=== PATIENT | male | born 1980 | race American Indian/Alaskan Native ===

== ENCOUNTER 2021-12-05 10:53 | Outpatient (CLI) | payer BC ==
[2021-12-05 11:22] LABS: Hematocrit 42.2 % (35.5-45.6); Mean Corpuscular HGB Conc 33 % (32-34); Mean Corpuscular Volume 98 fl (84-94); Platelet Count 245 K/mm3 (140-440); Red Cell Distribution Width 13.6 % (13.2-15.2)
[2021-12-05 11:49] LABS: Alanine Aminotransferase 64 units/L (7-56); Albumin 4.6 g/dL (3.9-5); BUN/Creatinine Ratio 16; Blood Urea Nitrogen 14 mg/dL (9-20); Hemolysis Index 6
[2021-12-05 13:55] LABS: Band Neutrophils # (Manual) 0.1 K/mm3; Basophils % (Manual) 0 % (0.0-1.8); Eosinophils % (Manual) 0 % (0.0-4.3); Platelet Estimate Consistent w Auto; RBC Morphology Normal; Total Cells Counted 100
== END 2021-12-05 10:54 | disposition home or self-care (01) ==
LOC: LAB 10:53
PROVIDERS: ATTEND Surgery
DX: K40.90 Unilateral inguinal hernia, without obstruction or gangrene, not specified as recurrent (principal)
CPT/HCPCS: 36415; 80053; 85007; 85025

== ENCOUNTER 2021-12-10 06:22 | Day surgery (SDC) | payer BC ==
[2021-12-10] MEDS ORDERED: ceFAZolin/STERILE WATER 2 GM/20 ML SYRINGE IV SCH (07:00)
--- NOTE | 2021-12-10 07:12 | Anesthesia Consultation ---
Anesthesia Consult and Med Hx Date of service: 12/10/21 - Airway Anesthetic Teeth Evaluation: Poor ROM Head & Neck: Adequate Mental/Hyoid Distance: Adequate Mallampati Class: Class II Intubation Access Assessment: Probably Good - Pulmonary Exam CTA: Yes - Cardiac Exam Cardiac Exam: RRR - Pre-Operative Health Status ASA Pre-Surgery Classification: ASA2 Proposed Anesthetic Plan: General - Pre-Anesthesia Comment Pre-Anesthesia Comments: PS 1999 CIRCUMCISION AND 2008- APPY, - Pulmonary Hx Smoking: Yes (STOPPED 2.5 YRS) Hx Asthma: No Hx Respiratory Symptoms: No SOB: No COPD: No Home Oxygen Therapy: No Hx Pneumonia: No Hx Sleep Apnea: No ([facility]NA PRE SCREEN LOW RISK) - Cardiovascular System Hx Hypertension: No Hx Coronary Artery Disease: No Hx Heart Attack/AMI: No Hx Angina: No Hx Percutaneous Transluminal Coronary Angioplasty (PTCA): No Hx Cardia Arrhythmia: No Hx Internal Defibrillator: No - Central Nervous System Hx Psychiatric Problems: No - Gastrointestinal Hx Gastroesophageal Reflux Disease: No - Endocrine Hx Renal Disease: No Hx Liver Disease: No Hx Insulin Dependent Diabetes: No Hx Non-Insulin Dependent Diabetes: No Hx Thyroid Disease: No - Hematic Hx Anemia: No - Other Systems Hx Alcohol Use: Yes (SOCIAL ) Hx Cancer: No Hx Obesity: Yes
--- NOTE | 2021-12-10 07:12 | Anesthesia Day of Surgery ---
Anesthesia Day of Surgery - Day of Surgery Patient Examined: Yes Patient H&P Reviewed: Yes Patient is NPO: Yes
[2021-12-10] MEDS ORDERED: BUPIVACAINE/PF (0.5%) 5 MG/1 ML 30 ML VIAL INFILTRATI ONE (07:43)
[2021-12-10] MEDS ORDERED: LIDOCAINE (1%) 10 MG/1 ML VIAL 20 ML MDV ONE (07:43)
[2021-12-10] MEDS ORDERED: LACTATED RINGERS 1,000 ML IV SCH (08:00)
[2021-12-10] MEDS ORDERED: LIDOCAINE MPF (2%) 20 MG/1 ML VIAL 5 ML ONE (08:02)
[2021-12-10] MEDS ORDERED: ONDANSETRON 4 MG/2 ML INJ ONE ×2 (08:02→12:39)
[2021-12-10] MEDS ORDERED: HYDROmorphone 1 MG/1 ML INJ ONE (08:02)
[2021-12-10] MEDS ORDERED: ROCURONIUM 50 MG/5 ML INJ IV ONE ×2 (08:02→10:14)
[2021-12-10] MEDS ORDERED: propofoL 200 MG/20 ML VIAL IV ONE (08:03)
[2021-12-10] MEDS ORDERED: LACTATED RINGERS 1,000 ML ONE ×2 (08:06→10:46)
[2021-12-10] MEDS ORDERED: SODIUM CHLORIDE 0.9% IRR 1,000 ML BOTTLE IR ONE (09:35)
[2021-12-10] MEDS ORDERED: KETOROLAC 30 MG/1 ML INJ ONE (10:14)
[2021-12-10] MEDS ORDERED: NEOSTIGMINE 10MG/10 ML INJ MDV ONE (10:14)
[2021-12-10] MEDS ORDERED: GLYCOPYRROLATE 0.4 MG/2 ML INJ ONE (10:14)
[2021-12-10] MEDS ORDERED: PHENYLEPHRINE/NS 1,000 MCG/10 ML SYRINGE (OR USE) IV ONE (10:14)
[2021-12-10] MEDS ORDERED: dexAMETHasone 20 MG/5 ML VIAL ONE (10:14)
[2021-12-10] MEDS ORDERED: HYDROmorphone 0.5 MG/0.5 ML INJ IV PRN (12:40)
[2021-12-10] MEDS ORDERED: ONDANSETRON 4 MG/2 ML INJ IV PRN (12:40)
--- NOTE | 2021-12-10 12:50 | Short Stay Summary ---
Short Stay Documentation Date of service: 12/10/21 - History Principal diagnosis: right inguinal hernia H&P: obtained from office - Allergies and Medications Current Medications: Allergies No Known Allergies Allergy (Verified 12/06/21 15:38) Home Medications Medication Instructions Recorded Confirmed Last Taken Type No Known Home Medications [No 12/06/21 12/06/21 Unknown History Reported Home Medications] Active Medications Cefazolin Sodium (Cefazolin/Sterile Water 2 Gm/20 Ml Syringe) 2 gm IV PREOP EUGENE - Brief post op/procedure progress note Date of procedure: 12/10/21 Pre-op diagnosis: Right inguinal hernia Post-op diagnosis: same (Incarcerated right inguinal hernia) Procedure: Robotic assisted lysis of adhesions, right inguinal hernia repair with mesh, right ilioinguinal nerve block Anesthesia: GETA, local Findings: Large indirect right-sided inguinal hernia with incarcerated omentum and dense adhesions from the colon and omentum to the hernia sac. Repaired with large right medium weight 3D max mesh. Surgeon: MARTINA HOOPER (Air Crew Officer: Barrie Patterson ) Estimated blood loss: minimal Pathology: none Condition: stable - Hospital course Hospital course: Patient observed in PACU and discharged home in stable condition when criteria met - Disposition Condition at discharge: Good Disposition: 01 HOME / SELF CARE / HOMELESS Short Stay Discharge Plan Activity: other (No heavy lifting for 6 weeks) Diet: regular Wound: open to air, per your surgeon's advice Additional Instructions: Please see printed discharge instructions Follow up with: PRIMARY CARE, [Primary Care Provider] - 7 Days MARTINA HOOPER DO [Staff Physician] - 14 Days Prescriptions: Gabapentin 300 mg PO BID 3 Days #6 cap Ibuprofen [Motrin 800 MG tab] 800 mg PO Q8HR PRN #30 tablet PRN Reason: Pain, Moderate (4-6) HYDROcodone/APAP 5-325 [[place] 5/325] 1 each PO Q6HR PRN #20 tablet PRN Reason: Pain , Severe (7-10)
[2021-12-10] MEDS ORDERED: HYDROcodone/ACETAMINOPHEN 5-325 MG TAB PO PRN (13:00)
[2021-12-10 13:54] VITALS: BP 138/88
--- NOTE | 2021-12-10 16:06 | Post Anesthesia Evaluation ---
- Post Anesthesia Evaluation Patient Participated: Yes Airway Patent: Yes Stable Respiratory Function: Yes Nausea/Vomiting: No Temp > 96.8F: Yes Pain Manageable: Yes Adequeate Hydration: Yes Anesthesia Complications: No
--- NOTE | 2021-12-11 10:37 | Operative Report ---
Operative Report Operative Report: Date of procedure: 12/10/21 Pre-op diagnosis: Right inguinal hernia Post-op diagnosis: same (Incarcerated right inguinal hernia) Procedure: Robotic assisted lysis of adhesions, right inguinal hernia repair with mesh, right ilioinguinal nerve block Anesthesia: GETA, local Findings: Large indirect right-sided inguinal hernia with incarcerated omentum and dense adhesions from the colon and omentum to the hernia sac. Repaired with large right medium weight 3D max mesh. Surgeon: MARTINA HOOPER (Ornamental Metal Erector: Barrie Patterson ) Estimated blood loss: minimal Pathology: none Condition: stable Hospital course: Patient observed in PACU and discharged home in stable condition when criteria met HPI and indication: Patient is a 41-year-old male who was referred to the surgery clinic for a bulge in the right groin. He was found to have a right inguinal hernia on physical exam. It was recommended that the hernia be repaired. I discussed all risk, benefits, alternatives to repair with the patient and questions were answered. I explained that if the hernia was found on the left side at the same time, this would be fixed as well. The patient was agreeable. Consent obtained for robotic assisted right inguinal hernia repair with mesh, possible left, possible open. Procedure in detail: Patient was identified in the preoperative area, take back to operating room placed on operative table in supine position. After anesthesia was induced both arms were tucked and all bony prominences padded appropriately. A Cancino catheter was sterilely placed by the circulating nurse. The abdomen and b/l groins were then prepped and draped in usual sterile fashion and a timeout performed. Local anesthetic was infiltrated to skin at the intended incision sites. A supraumbilical incision was made through which a Veress needle was inserted. Veress needle positioning was confirmed using saline drop test and the abdomen insufflated to 15 mmHg. Once the abdomen was insufflated, the Veress needle was removed and a 5 mm Optiview trocar was placed as incision. The abdomen is inspected there was no underlying injury to any of the abdominal structures. Patient was placed in Trendelenburg and the pelvis examined. There were adhesions from the sigmoid colon to the left lower abdominal wall. There was a right inguinal hernia containing incarcerated omentum and no obvious hernia on the right. There were also dense adhesions fro m the omentum and right colon to the hernia sac. At this point, an 8 mm right upper quadrant and left upper quadrant robotic trocars were then placed under direct visualization. The 5 mm supraumbilical trocar was removed and replaced with a 12 mm balloon trocar under direct visualization. A Ray-Levi was placed into the abdomen. The robot was then docked. A fenestrated bipolar was placed into arm #2 and a monopolar scissor in arm #1. The surgeon was then transferred to the console. I started by attempting to reduce the incarcerated omentum. Dense adhesions from the omentum to the hernia sac were divided using combination of blunt dissection and electrocautery. Adhesions from the colon were also taken down in a similar fashion with great care to avoid injury. There was a large amount of omentum incarcerated in the hernia, the majority of which was able to be reduced once adhesions were taken down. At this point, I created a right sided preperitoneal flap. The peritoneum was scored approximately 5 to 6 cm from the hernia defect. The peritoneum was then incised from the midline to the ASIS. The preperitoneal flap was then developed in an avascular plane. I defined the lateral margin using blunt dissection and electrocautery. Great care was taken to avoid injury to any nerves. I then dissected the medial margin. There were dense adhesions in this area which were taken down meticulously using blunt dissection and electrocautery. The dissection was continued until the pubic tubercle was identified and cleared of overlying fatty tissue. There was a large indirect inguinoscrotal hernia. The hernia sac was chronically thickened and scarred to the surrounding structures. The hernia sac was gently reduced using blunt dissection and transecting cremasteric fibers with electrocautery. During the dissection, the cord structures were identified and protected. The cord structures and vas deferens were visualized throughout the entire dissection. There were areas of the hernia sac were which were extremely thin and during reduction, tears were created. The majority of the hernia sac was able to be reduced. A very small portion of the hernia sac was unable to be reduced secondary to chronic scarring and was transected. The peritoneal flap was checked for hemostasis which was very carefully ensured. Any additional cremasteric fibers that were were tenting up the peritoneum were divided in order to facilitate mesh placement. The entire dissection took greater than 2 hours. The hernia was repaired using a right large medium weight 3D max mesh. The mesh along with suture material was placed into the abdomen by the virtual assistant. The mesh was positioned into the preperitoneal flap in the usual fashion. The medial portion of the mesh was sutured to Kobi's ligament using an interrupted 2-0 Vicryl stitch. The lateral aspect of the mesh was sutured to the anterior lateral abdominal wall using a 2-0 Vicryl interrupted stitch. The mesh was seen to lay flat in the pocket with excellent coverage. An 18 Thai Angiocath was inserted through the left lower abdominal wall into the preperitoneal flap by the virtual assistant under direct visualization. This was used to later decompressed the preperitoneal space of pneumoperitoneum. The peritoneum was then reapproximated using 3-0 running V-Loc stitch. The defect in the peritoneum were approximated using another running 3 OV lock stitch. The entirety of the mesh was covered with peritoneum. The robot was then undocked and the surgeon scrubbed back in. The remainder of the case was performed laparoscopically. All sharp materials along with a Ray-Levi were removed from the abdomen under direct visualization. The 12 mm port was removed and the fascia closed using a interrupted 0 Vicryl stitch. The abdomen was then slowly desufflated and the mesh was seen to lay flat in the preperitoneal space. The remaining trocars were removed. Preperitoneal air and the flap was evacuated via the Angiocath and the Angiocath removed. Skin incisions were once again infiltrated with local anesthetic. Right ilioinguinal nerve block was also performed with 5 cc of local anesthetic. The skin incisions were approximated with 4-0 Monocryl subcuticular stitches and skin glue. At the end of the case all sponge, instrument, sharp counts were correct x2. Patient was awoken from anesthesia and Cancino catheter removed. A scrotal support was applied. Both testicles were palpated in the scrotum in anatomic position. The patient was taken to PACU in stable condition.
== END 2021-12-10 14:20 | disposition home or self-care (01) ==
LOC: OR 06:22
PROVIDERS: ATTEND Surgery
DX: K40.30 Unilateral inguinal hernia, with obstruction, without gangrene, not specified as recurrent (principal); K66.0 Peritoneal adhesions (postprocedural) (postinfection); E66.9 Obesity, unspecified; Z87.891 Personal history of nicotine dependence; Z79.899 Other long term (current) drug therapy; Z90.49 Acquired absence of other specified parts of digestive tract; Z72.89 Other problems related to lifestyle; Z98.890 Other specified postprocedural states
CPT/HCPCS: 49650; C1781; J0690; J1100; J1170; J1815; J1885; J2370; J2405; J2704; J2710; J3490; J7120; S2900